=== PATIENT | male | born 1975 | race Caucasian/White ===

== ENCOUNTER → 2017-06-22 | Outpatient (CLI) | payer OTHER ==
[~2017-06-22] VITALS: Ht 180.3 cm; Wt 112.8 kg
[~2017-06-22] MED LIST: ATOR20TA86 PO; ATOR80TA PO; BUME1TAB17 PO; CARV6 PO; GABA-531 PO; INSU100I26 SQ; LISI-622 PO; METF500T4 PO; TRAZ-144 PO
[2017-06-22 09:57] VITALS: BP 120/66
== END | disposition home or self-care (01) ==
LOC: HBOWC 09:30
PROVIDERS: ATTEND Podiatrist
DX: E11.621 Type 2 diabetes mellitus with foot ulcer (principal); L97.511 Non-pressure chronic ulcer of other part of right foot limited to breakdown of skin; L84 Corns and callosities; I10 Essential (primary) hypertension; E78.00 Pure hypercholesterolemia, unspecified; F17.210 Nicotine dependence, cigarettes, uncomplicated
CPT/HCPCS: 97597

== ENCOUNTER → 2017-06-29 | Outpatient (CLI) | payer OTHER ==
[~2017-06-29] MED LIST changes: -ATOR80TA PO
[2017-06-29 10:25] VITALS: BP 126/75
== END | disposition home or self-care (01) ==
LOC: HBOWC 10:23
PROVIDERS: ATTEND Podiatrist
DX: E11.621 Type 2 diabetes mellitus with foot ulcer (principal); L97.512 Non-pressure chronic ulcer of other part of right foot with fat layer exposed; I10 Essential (primary) hypertension; E78.00 Pure hypercholesterolemia, unspecified; F17.210 Nicotine dependence, cigarettes, uncomplicated
CPT/HCPCS: 97597

== ENCOUNTER 2017-10-23 08:47 | Emergency (ER) | payer OTHER ==
[~2017-10-23] VITALS: Ht 180.3 cm; Wt 107.0 kg
[2017-10-23] MEDS ORDERED: DULA1.5P IM (09:23)
[2017-10-23] MEDS ORDERED: PREG50 PO (09:23)
[2017-10-23] MEDS ORDERED: INSLAN SQ (09:23)
[2017-10-23 10:37] LABS: BASOPHILS % (AUTO) 0.3 % (0.0-2.0); EOSINOPHILS % (AUTO) 1.3 % (1.0-6.0); HEMATOCRIT 39.6 % (41-53); HEMOGLOBIN 13.9 g/dL (13.5-17.5); LYMPHOCYTES # (AUTO) 3.1 K/uL (1.0-4.8); LYMPHOCYTES % (AUTO) 35.1 % (22.0-44.0); MEAN CORPUSCULAR HEMOGLOBIN 30.6 pg (26.0-34.0); MEAN CORPUSCULAR HGB CONC 35.2 G/dL (31.0-37.0); MEAN CORPUSCULAR VOLUME 87 fL (80-100); MONOCYTES # (AUTO) 0.5 K/uL (0.1-1.0); MONOCYTES % (AUTO) 5.8 % (2.0-9.0); NEUTROPHILS # (AUTO) 5.1 K/uL (1.8-7.7); NEUTROPHILS % (AUTO) 57.5 % (40.0-70.0); PLATELET COUNT (AUTO) 272 K/uL (150-450); RED BLOOD CELL COUNT(AUTO) 4.55 MIL/uL (4.50-5.90); RED CELL DISTRIBUTION WIDTH 13.5 % (11.5-14.5)
[2017-10-23 12:14] VITALS: BP 129/89
== END 2017-10-23 12:16 | disposition home or self-care (01) ==
LOC: EMS 08:50
DX: I11.0 Hypertensive heart disease with heart failure (principal); I50.9 Heart failure, unspecified; L30.4 Erythema intertrigo; K60.0 Acute anal fissure; E11.9 Type 2 diabetes mellitus without complications; E78.00 Pure hypercholesterolemia, unspecified; K62.89 Other specified diseases of anus and rectum; Z79.4 Long term (current) use of insulin
CPT/HCPCS: 99283